=== PATIENT | female | born 1930 | race Caucasian/White ===

== ENCOUNTER → 2016-10-14 | Outpatient (CLI) | payer OTHER ==
[~2016-10-14] VITALS: Ht 157.5 cm; Wt 56.2 kg
[~2016-10-14] MED LIST: ACETAMINOPHEN-1 EAC1 PO; ADVIL LIQUI-GE200 MG PO; ATIVAN0.5 MG PO; AUGMENTIN 500-1 EACH PO; DIGOXIN; LANOXIN 0.120.125 M3 PO; LEVOTHYROXIN0.125 M1 PO; LIDODERM 5%1 PATCH TOP; NEURONTIN 300300 M1 PO; NEXIUM 40 MG CA40 M1 PO; NORVASC5 MG PO; PROZAC 20 MG20 MG PO; ROBAXIN 750 MG750 M1 PO; SYNTHROID; SYNTHROID150 MCG PO; TYLENOL EX-STR500 M2 PO; ULTRAM 50MG TAB50 MG PO; VALIUM5 MG PO; acetaminophen
--- NOTE | ~2016-10-14 | HPC ---
[facility] [address] [place] [address] PAIN MANAGEMENT CONSULTATION Name: LIEN DUKES Room #: REG [facility].#: [id number] Admission: 10/14/16 Attend Phys: Casandra Mak MD Discharge: Date of : 28 Report #: [id number] THIS REPORT FOR: //name// CC: Casandra Almonte MD DATE OF SERVICE: 10/14/2016 FOLLOWUP COMPLAINT: Having pain that is going down the low back into the left buttocks and left leg. FOLLOWUP HISTORY: The patient is an 86-year-old female who has been followed in the Pain Clinic because of lumbar radiculopathy. As you recall, she has had significant surgery in her low back area. She has had epidural steroid injections, which have been helpful in the past. She notes that her pain has recurred and rates it as a 9-10 at this juncture. She is having some tingling sensation, stabbing sensation radiating down the left buttocks and into the left leg. She is sitting, leaning on her right buttocks because she is unable to sit up straight on her left buttocks. She would like to undergo a treatment with an epidural steroid injection. PHYSICAL EXAMINATION: Blood pressure is 148/92, pulse 55, respiratory rate 14, room air saturation is 99%. Height 5 feet 2 inches, weight 56 kilograms, BMI is 22.7. The patient has pain and discomfort radiating down into her left leg. ASSESSMENT: 1. Thyroid disease. 2. History of atrial fibrillation. RECOMMENDATION: We discussed the treatment option with the patient. Risks and benefits of an epidural steroid injection were again reviewed. Possible complications which could include but are not limited to infection, bleeding, headache, increased muscle soreness, nerve damage. The patient elects to proceed. PROCEDURE NOTE: The patient was placed in the prone position. Fluoroscopy was used to identify the L5-S1 area. Attempts at a midline injection were not successful. We then went with a left transforaminal injection at the left L5 nerve root area. A 20-gauge spinal needle was advanced after this area had been infiltrated with 0.25% bupivacaine. A total of 80 mg Depo-Medrol was injected. The patient tolerated the procedure well. She did have some numbness in her legs and a total of 32 seconds fluoroscopy time was used. The patient remained in the Pain Clinic for an appropriate amount of time. [place] [address] PAIN MANAGEMENT CONSULTATION Name: LIEN DUKES Room #: REG [facility] Lan#: [id number] Admission: 10/14/16 Attend Phys: Casandra Mak MD Discharge: Date of : 28 Report #: [id number] future as needed. We would like to thank you for letting us participate in her care. We hope she continues to improve. By: [id number] MD anna Zhong
[2016-10-14 11:04] VITALS: BP 148/92
== END | disposition home or self-care (01) ==
LOC: PAIN 09:40
DX: M54.16 Radiculopathy, lumbar region (principal); G89.29 Other chronic pain; I48.91 Unspecified atrial fibrillation; E07.9 Disorder of thyroid, unspecified; Z88.8 Allergy status to other drugs, medicaments and biological substances; Z98.890 Other specified postprocedural states; Z79.899 Other long term (current) drug therapy

== ENCOUNTER 2017-04-11 16:47 | Emergency (ER) | payer OTHER ==
[~2017-04-11] VITALS: Ht 165.1 cm; Wt 74.8 kg
[2017-04-11 17:43] VITALS: BP 168/94
== END 2017-04-11 18:45 | disposition home or self-care (01) ==
LOC: ER 16:47
DX: S01.81XA Laceration without foreign body of other part of head, initial encounter (principal); E07.9 Disorder of thyroid, unspecified; I48.91 Unspecified atrial fibrillation; Z90.49 Acquired absence of other specified parts of digestive tract; Z90.710 Acquired absence of both cervix and uterus; Z98.890 Other specified postprocedural states; Z88.6 Allergy status to analgesic agent; W19.XXXA Unspecified fall, initial encounter; Y93.89 Activity, other specified; Y92.89 Other specified places as the place of occurrence of the external cause; Y99.8 Other external cause status

== ENCOUNTER → 2018-03-21 | Outpatient (CLI) | payer OTHER ==
[~2018-03-21] VITALS: Ht 157.5 cm; Wt 54.8 kg
--- NOTE | ~2018-03-21 | HPC ---
[facility] [address] [address] PAIN MANAGEMENT CONSULTATION Name: LIEN DUKES Room #: REG [facility].#: [id number] Admission: 03/21/18 Attend Phys: Casandra Mak MD Discharge: Date of : 28 Report #: [id number] THIS REPORT FOR: //name// CC: Casandra Almonte DATE OF SERVICE: 03/21/2018 CHIEF COMPLAINT: Here for another epidural injection. It helped for quite a while. Now it has returned. FOLLOWUP HISTORY: The patient is an 87-year-old female who has been followed in the pain clinic because of lumbar radiculopathy. As you recall, she has had a number of back surgeries. Continues to have pain and discomfort, which is more problematic on the left side today. She underwent an epidural steroid injection using the transforaminal approach in 09/2016. Overall, things have been doing reasonably well. States that she was trimming/placing ornaments on her [place] tree, she was standing, started to fall, grasped the [place] tree, but she fell to the floor. Overall, some ornaments were broken. She states that she was more distraught because of the fall rather than the breaking of the ornaments. She overall has been doing reasonably well at this point and has returned to the pain clinic with a desire to undergo an epidural steroid. ALLERGIES: NAPROSYN, TETRACYCLINE, SULFA, FELDENE, TOLVIN, AND FLEXERIL. CURRENT MEDICATIONS: Norvasc 5 mg, lorazepam 0.5 mg, Robaxin 750 mg b.i.d., levothyroxine 125 mcg, Tylenol Extra Strength 500 mg, gabapentin 300 mg t.i.d., Nexium 40 mg, Prozac 20 mg b.i.d., and digoxin 0.125 mg. PAIN CLINIC ASSESSMENT/PQRS: 1. History of osteoarthritis. The patient has some arthritic changes in her low back area. She has had a number of surgeries. 2. Rheumatoid arthritis. The patient is not being treated for rheumatoid arthritis. 3. Height 5 feet 2 inches, weight 120 pounds, BMI is 22.1. 4. Vital signs: Blood pressure 116/71, pulse 64, respiratory rate 16, room air saturation 98%. 5. Pain intensity 08/03. 6. Fall risk. The patient did fall a couple of days ago, with her [place] tree. Did not need to go to the hospital. Overall, things are going reasonably well. 7. Blood thinner. The patient is not on a blood thinning medication. 8. Hypertension. The patient is being treated for hypertension. 9. Opioids greater than 6 weeks. The patient is not on an opioid medications on a regular basis. 10. Risk assessment tool, ____low for opioid use. [address] [address] PAIN MANAGEMENT CONSULTATION Name: LIEN DUKES Room #: REG [facility]#: [id number] Admission: 03/21/18 Attend Phys: Casandra Mak MD Discharge: Date of : 28 Report #: [id number] 11. Functional assessment tool, low. 12. Recreational drug use. The patient denies use of recreational drugs. 13. Tobacco: The patient has never smoked. 14. Alcohol. The patient rarely drinks alcoholic beverages. PHYSICAL EXAMINATION: GENERAL: The patient is a well-developed, well-nourished white female. Appears her stated age. She is alert and oriented x 3. Affect is appropriate. Speech is fluent. HEENT: Normocephalic, atraumatic. Extraocular eye muscles intact. Sclerae nonicteric. Mucous membranes are moist. The patient has some decreased hearing acuity. NECK: Without adenopathy or JVD. HEART: Regular rate. LUNGS: Clear to auscultation. ABDOMEN: Nontender. EXTREMITIES: Upper extremity muscle strength is judged to be 4+/5 for the major muscle groups in the upper extremity. The patient without significant scoliosis, lordosis, has some kyphosis. The patient has pain and discomfort, which is radiating down into the left leg in the L5-S1 dermatomal distribution. IMPRESSION: 1. Lumbar radiculopathy. 2. Hypertension. 3. Hypercholesterolemia. 4. Hypothyroidism. RECOMMENDATIONS: We discussed treatment options with the patient. Risks and benefits of an injection using the transforaminal approach were discussed. The patient noted benefit from this in 09/2016. We will proceed with another injection. We have discussed possible complication of the procedure, which could include but are not limited to infection, worsening of pain, no improvement in pain, nerve damage, paralysis and the patient elects to proceed. PROCEDURE NOTE: The patient was assisted in getting on examination table. Her back was sterilely prepped with a Betadine solution. A 0.25% bupivacaine was infiltrated in the L5 paraspinous area. A 20-gauge spinal needle using fluoroscopy for anterior and lateral viewing were implemented. A total of 80 mg Depo-Medrol, 40 mg triamcinolone and 2 mL of 0.25% bupivacaine was injected. The patient tolerated the procedure. Pain decreased from 5-2 at the time of discharge. Total of 17 seconds fluoroscopy time was used. She will call us if she has any concerns. [address] [address] PAIN MANAGEMENT CONSULTATION Name: LIEN DUKES Room #: REG [facility].#: [id number] Admission: 03/21/18 Attend Phys: Casandra Mak MD Discharge: Date of : 28 Report #: [id number] We would like to thank you for letting us participate in her care. By: 00 20 Casandra Mak MD /nt
[2018-03-21 10:32] VITALS: BP 116/71
== END ==
LOC: PAIN 09:57
DX: M54.16 Radiculopathy, lumbar region (principal); G89.29 Other chronic pain; I10 Essential (primary) hypertension; E78.00 Pure hypercholesterolemia, unspecified; E03.9 Hypothyroidism, unspecified; Z88.2 Allergy status to sulfonamides; Z88.8 Allergy status to other drugs, medicaments and biological substances; Z79.899 Other long term (current) drug therapy; Z98.890 Other specified postprocedural states